=== PATIENT | female | born 1965 | race Two or more races ===

== ENCOUNTER 2017-05-27 17:44 | Emergency (ER) | payer SELFPAY ==
[~2017-05-27] VITALS: Ht 160 cm; Wt 95.3 kg
[2017-05-27 17:57] VITALS: BP 142/97
--- NOTE | 2017-05-27 18:06 | PHYS DOC ---
Adult General Chief Complaint Chief Complaint: FOOT INJURY PAIN [facility] HPI The patient is non-Turkish speaking and the interpretation line was utilized to assist with Russian translation. Patient is a 51 year old female presents to the emergency department with complaints of right ankle pain after an inversion- type injury while walking on a slight incline. Patient states she did not fall to the ground. She has been ambulatory and extremity since incident. Incident occurred approximately 3 hours prior to arrival. She complains of pain in the lateral aspect of the right foot in the right ankle. Review of Systems Review of Systems Constitutional: Denies fever or chills [] Eyes: Denies change in visual acuity, redness, or eye pain [] HENT: Denies nasal congestion or sore throat [] Respiratory: Denies cough or shortness of breath [] Cardiovascular: No additional information not addressed in HPI [] GI: Denies abdominal pain, nausea, vomiting, bloody stools or diarrhea [] : Denies dysuria or hematuria [] Musculoskeletal: Right ankle and foot pain Integument: Denies rash or skin lesions [] Neurologic: Denies headache, focal weakness or sensory changes [] Endocrine: Denies polyuria or polydipsia [] Current Medications Current Medications Current Medications Medications (Trade) Dose Ordered Sig/Maddi Start Time Stop Time Status Last Admin Dose Admin Ibuprofen (Motrin) 800 mg 1X ONCE 05/27/17 18:00 05/27/17 18:01 UNV Physical Exam Physical Exam Constitutional: Well developed, well nourished, no acute distress, non-toxic appearance. [] Neck: Normal range of motion, no tenderness, supple, no stridor. [] Cardiovascular:Heart rate regular rhythm, no murmur [] Lungs & Thorax: Bilateral breath sounds clear to auscultation [] Skin: Warm, dry, no erythema, no rash. [] Back: No tenderness, no CVA tenderness. [] Extremities: Right lower extremity: Right knee exam unremarkable. She is nontender to palpate over the anterior tibia. She has mild tenderness to palpate over the dorsal aspect of the ankle, mild swelling the lateral malleolus. There is no tenderness to palpate over the lateral or medial malleolus. The Achilles tendon is intact. The right foot exam is without swelling or ecchymosis but she does have tenderness to palpate on the fifth metatarsal, midshaft. Neurovascular is intact distally. Distal cap refill less than 2. Neurologic: Alert and oriented X 3, normal motor function, normal sensory function, no focal deficits noted. [] Current Patient Data Vital Signs Vital Signs Date Time Temp Pulse Resp B/P (MAP) Pulse Ox O2 Delivery O2 Flow Rate FiO2 05/27/17 17:57 98.0 54 18 98 Room Air 98.0 EKG EKG [] Radiology/Procedures Radiology/Procedures Right foot and right ankle x-ray without acute bony injury. Course & Med Decision Making Course & Med Decision Making Aircast applied by nursing staff. Patient tolerated well. Neurovascular intact distally. Crutch instruction provided. Pertinent Labs and Imaging studies reviewed. (See chart for details) [] Dragon Disclaimer Dragon Disclaimer This electronic medical record was generated, in whole or in part, using a voice recognition dictation system. Departure Departure Impression: Primary Impression: Ankle sprain Disposition: HOME, SELF-CARE Condition: STABLE Referrals: [facility] Patient Instructions: Ankle Sprain, Crutch Use, RICE - Routine Care for Injuries Scripts Ibuprofen (IBUPROFEN) 800 Mg Tablet 800 MG PO PRN Q6HRS Y for INFLAMMATION, #20 TAB Prov: GUILLAUME MORALEZ APRN 05/27/17 Problem Qualifiers Primary Impression: Ankle sprain Encounter type: initial encounter Involved ligament of ankle: unspecified ligament Laterality: right Qualified Codes: S93.401A - Sprain of unspecified ligament of right ankle, initial encounter GUILLAUME MORALEZ APRN May 27, 2017 18:06
[2017-05-27] MEDS ORDERED: IBUP-1060 PO (18:24)
[2017-05-27] MEDS ORDERED: IBUPROFEN 800 MG TABLET. PO ONE (18:45)
--- NOTE | 2017-05-28 07:34 | RAD ---
Right ankle radiograph 3 views 05/27/2017 Clinical indication: Pain at the lateral aspect of the foot. Trauma to the right foot. Right foot pain. Comparison: None. Findings: No acute fracture or traumatic malalignment. Mild first MTP osteoarthritis. Minimal calcaneal spurring at the origin of the plantar fascia. Joint spaces are otherwise maintained. Impression: No acute osseous abnormality.
--- NOTE | 2017-05-28 07:36 | RAD ---
Right ankle radiograph 3 views 05/27/2017 Clinical indication: Trauma with right ankle pain radiating to the right foot. Comparison: None. Findings: There are two tiny calcific densities the posterior aspect of the ankle joint only seen on the lateral view and likely sequela of remote injury. No acute fracture or traumatic malalignment. Ankle mortise and talar dome maintained. Impression: No acute osseous abnormality.
== END 2017-05-27 18:43 | disposition home or self-care (01) ==
LOC: ER 17:44
DX: S93.401A Sprain of unspecified ligament of right ankle, initial encounter (principal); X58.XXXA Exposure to other specified factors, initial encounter; Y93.01 Activity, walking, marching and hiking; Y92.89 Other specified places as the place of occurrence of the external cause; Y99.8 Other external cause status
CPT/HCPCS: 29515; 73610; 73630; 99284-25